=== PATIENT | male | born 1995 | race African-American/Black ===

== ENCOUNTER 2016-12-16 13:05 | Outpatient (CLI) | payer OTHER | END 2016-12-16 19:29 | disposition home or self-care (01) | LOC: RAD 13:05 | DX: R10.31 Right lower quadrant pain (principal); R63.0 Anorexia; R11.0 Nausea; R50.9 Fever, unspecified | CPT/HCPCS: Q9963 ==

== ENCOUNTER 2016-12-16 18:04 | Observation (INO) | payer OTHER ==
[~2016-12-16] VITALS: Ht 167.6 cm; Wt 80.5 kg
[2016-12-16 21:07] LABS: PLATELET COUNT 225 K/uL (142-355)
[2016-12-16 22:34] LABS: POTASSIUM 3.4 mmol/L (3.6-5.2); SODIUM 137 mmol/L (136-145)
[2016-12-16 23:06] VITALS: BP 124/68; TEMP 100; Ht 167.6 cm; Wt 80.5 kg
[2016-12-17 00:16] VITALS: BP 132/58; TEMP 99.1
[2016-12-17 04:00] VITALS: BP 119/63; TEMP 100.2
[2016-12-17 06:12] LABS: PLATELET COUNT 218 K/uL (142-355)
[2016-12-17 06:40] LABS: POTASSIUM 4.1 mmol/L (3.6-5.2); SODIUM 136 mmol/L (136-145)
[2016-12-17 08:25] VITALS: BP 128/59; TEMP 98.8
== END 2016-12-17 10:50 | disposition short-term general hospital (02) ==
LOC: MED/SURG 18:04
PROVIDERS: Student in an Organized Health Care Education/Training Program; ADMIT Family Medicine
DX: K35.89 Other acute appendicitis (principal)
CPT/HCPCS: 36415; 36591; 80048; 85027; 94760; 96365; 96366; 96367; 96375; 99220; G0378; G0379; J2270; J3490